=== PATIENT | male | born 1990 | race Caucasian/White ===

== ENCOUNTER → 2021-04-14 | Outpatient (CLI) | payer OTHER ==
[~2021-04-14] MED LIST: HYDR-2214 PO; NONE PER PT; ONDA4TAB7 PO
== END | disposition home or self-care (01) ==
LOC: CVU 14:33
PROVIDERS: ATTEND Surgery
DX: I83.891 Varicose veins of right lower extremity with other complications (principal)
CPT/HCPCS: 93970

== ENCOUNTER 2021-05-27 11:47 | Emergency (ER) | payer OTHER ==
[~2021-05-27] VITALS: Ht 193 cm; Wt 110.0 kg
[2021-05-27 11:55] VITALS: BP 92/68
[2021-05-27] MEDS ORDERED: ACETAMINOPHEN 500 MG TABLET PO ONE (12:00)
[2021-05-27] MEDS ORDERED: IBUPROFEN 600 MG TABLET PO ONE (12:00)
[2021-05-27] MEDS ORDERED: IBUPROFEN 600 MG TABLET ONE (12:01)
[2021-05-27] MEDS ORDERED: ACETAMINOPHEN 500 MG TABLET ONE (12:02)
--- NOTE | 2021-05-27 14:13 | NUR ---
DC EDUCATION PROVIDED TO PT BY ERP. PT DEMONSTRATES UNDERSTANDING.
== END 2021-05-27 14:18 | disposition home or self-care (01) ==
LOC: ED 14:00
DX: U07.1 COVID-19 (principal); J06.9 Acute upper respiratory infection, unspecified
CPT/HCPCS: 71045; 99283